=== PATIENT | male | born 1990 | race Caucasian/White ===

== ENCOUNTER → 2016-10-20 | Outpatient (CLI) | payer OTHER ==
[2016-10-20 16:39] LABS: CHLORIDE,CL 111 mmol/L (98-110); SODIUM,NA 142 mmol/L (136-146)
== END ==
LOC: MW.CHRC 15:50
PROVIDERS: ATTEND Family Medicine
DX: R58 Hemorrhage, not elsewhere classified (principal)
CPT/HCPCS: 36415; 80053; 85025; 85610

== ENCOUNTER 2017-05-24 10:07 | Emergency (ER) | payer BC ==
[2017-05-24 10:21] VITALS: BP 151/87
[2017-05-24] MEDS ORDERED: Lidocaine 1% 20 ML MDV INJECT ONE (10:21)
[2017-05-24] MEDS ORDERED: Diphtheria,Pertussis(Acell),Tetanus Vaccine 0.5 ML Syringe IM ONE (10:23)
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
--- NOTE | 2017-05-24 10:59 | CR ---
EXAMINATION: Right hand, third digit HISTORY: Avulsion COMPARISON: None TECHNIQUE: 3 views FINDINGS/IMPRESSION: There is a partial amputation of the distal third digit including a small portio n of the tuft of the distal third phalanx. There are a few adjacent tiny comminuted fragments. The re maining osseous structures and joint spaces appear intact.
[2017-05-24] MEDS ORDERED: ceFAZolin 1,000 MG VIAL IM ONE (11:26)
[2017-05-24] MEDS ORDERED: Acetaminophen/HYDROcodone 325-5 MG Tab PO ONE (11:26)
[2017-05-24] MEDS ORDERED: ceFAZolin 1 GM Vial ONE ×2 (11:41→11:42)
[2017-05-24] MEDS ORDERED: Water For Injection, Sterile 20 ML ONE (11:46)
== END 2017-05-24 12:26 | disposition home or self-care (01) ==
LOC: MW.ED 10:07
DX: S62.632B Displaced fracture of distal phalanx of right middle finger, initial encounter for open fracture (principal); F17.210 Nicotine dependence, cigarettes, uncomplicated; W23.1XXA Caught, crushed, jammed, or pinched between stationary objects, initial encounter
CPT/HCPCS: 64450; 73140; 96372; 99283; A9270; J0690

== ENCOUNTER 2017-11-11 22:08 | Emergency (ER) | payer BC ==
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
[2017-11-11 23:12] LABS: CHLORIDE,CL 105 mmol/L (98-107); SODIUM,NA 140 mmol/L (136-148)
[2017-11-11 23:49] VITALS: BP 129/69
== END 2017-11-11 23:30 ==
LOC: MW.ED 22:08
DX: F32.9 Major depressive disorder, single episode, unspecified (principal); R45.851 Suicidal ideations; F17.210 Nicotine dependence, cigarettes, uncomplicated
CPT/HCPCS: 36415; 80053; 80305; 81001; 84443; 84484; 85025; 99285; G0480; 99283